=== PATIENT | female | born 1950 | race Caucasian/White ===

== ENCOUNTER → 2016-09-09 | Outpatient (CLI) | payer OTHER, BC | LOC: RAD 13:48 | DX: R05 Cough (principal) ==

== ENCOUNTER → 2017-06-15 | Outpatient (CLI) | payer OTHER, BC | LOC: RAD 09:18 → NUC 10:30 | DX: Z12.31 Encounter for screening mammogram for malignant neoplasm of breast (principal); Z78.0 Asymptomatic menopausal state ==

== ENCOUNTER → 2018-08-25 | Outpatient (CLI) | payer OTHER, BC | LOC: RAD 04:21 | DX: Z12.31 Encounter for screening mammogram for malignant neoplasm of breast (principal) ==